=== PATIENT | male | born 1965 | race Caucasian/White ===

== ENCOUNTER 2016-09-03 08:12 | Emergency (ER) | payer SELFPAY ==
[2016-09-03 08:55] LABS: BILIRUBIN NEGATIVE (NEGATIVE); BLOOD NEGATIVE Ery/uL (NEGATIVE); CLARITY CLEAR (CLEAR); COLOR YELLOW (YELLOW); GLUCOSE (U) NORMAL (NORMAL); KETONE (U) NEGATIVE (NEGATIVE); LEUKOCYTES NEGATIVE Leu/uL (NEGATIVE); NITRITE NEGATIVE (NEGATIVE); PROTEIN NEGATIVE (NEGATIVE); SPECIFIC GRAVITY 1.015 (1.001-1.030); UROBILINOGEN 0.2 mg/dL (0.2-1.0); pH 7.5 (5.0-9.0)
[2016-09-03 09:02] LABS: BASOPHIL 0.7 % (0-2); EOSINOPHIL 3.3 % (0-5); HCT 45.6 % (42.0-52.0); HGB 16.2 g/dl (13.2-18.0); LYMPHOCYTE 47.4 % (15-48); MCH 33.2 pg (25.0-31.0); MCHC 35.5 g/dL (32.0-36.0); MCV 93.4 fL (78.0-100.0); MONOCYTE 6.7 % (0-12); MPV 9.4 fL (6.0-9.5); NEUTROPHIL 41.9 % (41-80); PLT 215 K/uL (150-400); RBC 4.88 M/uL (4.70-6.00); RDW 13.4 % (11.5-14.0); WBC 5.4 K/uL (4.0-10.5)
[2016-09-03 09:07] LABS: AMPHETAMINES NEGATIVE (NEGATIVE); BARBITURATES NEGATIVE (NEGATIVE); BENZODIAZEPINES NEGATIVE (NEGATIVE); COCAINE NEGATIVE (NEGATIVE); MARIJUANA (THC) POSITIVE (NEGATIVE); METHADONE NEGATIVE (NEGATIVE); TRICYCLIC ANTIDEPRESSANT NEGATIVE (NEGATIVE)
[2016-09-03 09:19] LABS: ALBUMIN 4.5 g/dL (3.5-5.0); BILIRUBIN - TOTAL 0.2 mg/dL (0.1-1.0); CREATININE 0.7 mg/dL (0.7-1.2); GLOBULIN (CALCULATION) 2.7 g/dL (2.2-4.2); POTASSIUM 4.1 mmol/L (3.5-5.1); TOTAL PROTEIN 7.2 g/dL (6.4-8.3)
== END 2016-09-03 10:27 | disposition home or self-care (01) ==
LOC: FER 08:12
PROVIDERS: Internal Medicine
DX: F41.1 Generalized anxiety disorder (principal); F17.200 Nicotine dependence, unspecified, uncomplicated
CPT/HCPCS: 36415; 80053; 80305; 81003; 83690; 85025; 99283

== ENCOUNTER 2020-03-28 19:56 | Emergency (ER) | payer OTHER ==
[~2020-03-28 19:56] MED LIST: BACTRIM DS TAB1 EACH PO; SILVADENE20 G1 TOP
== END 2020-03-28 21:35 | disposition left against medical advice (07) ==
LOC: FER 19:56
DX: M54.5 Low back pain (principal); M25.561 Pain in right knee; N50.82 Scrotal pain; Z53.8 Procedure and treatment not carried out for other reasons